=== PATIENT | male | born 1980 | race Caucasian/White ===

== ENCOUNTER 2022-02-24 16:06 | Emergency (ER) | payer OTHER ==
[2022-02-24 18:53] LABS: HEMOGLOBIN 15.3 gm/dl (14.0-17.5); RED BLOOD COUNT 4.44 M/UL (4.20-5.50); WHITE BLOOD COUNT 8.7 K/UL (4.5-11.0)
[2022-02-24 19:51] LABS: BUN/CREATININE RATIO 16 (0-10)
[2022-02-24] MEDS ORDERED: DOXYCYCLINE HY100 M2 PO (22:32)
[2022-02-24] MEDS ORDERED: CEPHALEXIN500 M1 PO (22:32)
[2022-02-24] MEDS ORDERED: BACTROBAN OINT22 GM TOP (22:32)
[2022-02-26 08:16] LABS: RPR Non Reactive (Non Reactive)
[2022-02-26 22:06] LABS: CHLAMYDIA TRACHOMATIS, NAA Negative (Negative); NEISSERIA GONORRHOEAE, NAA Negative (Negative)
== END 2022-02-25 02:48 | disposition home or self-care (01) ==
LOC: ER1 16:06
PROVIDERS: Emergency Medicine; Physician Assistant
DX: R59.0 Localized enlarged lymph nodes (principal); N50.89 Other specified disorders of the male genital organs; N49.2 Inflammatory disorders of scrotum; F17.200 Nicotine dependence, unspecified, uncomplicated
CPT/HCPCS: 80053; 81001; 83605; 85025; 86592; 87070; 87077; 87086; 87186; 87205; 99284; Q9967